=== PATIENT | female | born 1945 | race Two or more races ===

== ENCOUNTER 2021-01-07 10:41 | Outpatient (REF) | payer SELFPAY ==
[2021-01-07 13:59] LABS: Hematocrit 36.8 % (37-47); Hemoglobin 11.6 g/dl (12.0-16.0); Mean Corpuscular HGB Conc 31.5 g/dl (31.0-35.0); Mean Corpuscular Hemoglobin 29.4 pg (27.0-33.0); Mean Corpuscular Volume 93.4 fL (80-98); Mean Platelet Volume 10.2 fL (9.4-12.3); Platelet Count 306 X10*3/uL (160-400); Red Blood Count 3.94 X10*6/uL (4.20-5.50); Red Cell Distribution Width 13.2 % (11.0-16.0); White Blood Count 6.9 X10*3/uL (4.8-10.8)
[2021-01-07 14:23] LABS: Alanine Aminotransferase 10 U/L (0-31); Alkaline Phosphatase 72 U/L (39-117); Anion Gap 13 (12-20); Aspartate Amino Transferase 17 U/L (5-31); Bilirubin Direct < 0.2 mg/dL (0.0-0.5); Bilirubin Total 0.3 mg/dL (0.0-1.0); Blood Urea Nitrogen 11 mg/dL (9-16); Calcium 9.3 mg/dL (8.4-10.2); Carbon Dioxide 28 mmol/L (22-29); Chloride 103 mmol/L (96-108); Estimated Glomerular Filt Rate > 60; Glucose Random 84 mg/dL (60-115); Potassium 3.9 mmol/L (3.3-5.1); Sodium 140 mmol/L (135-145); Total Protein 6.9 g/dL (6.5-8.0)
[2021-01-07 14:44] LABS: Thyroid Stimulating Hormone 0.27 uIU/mL (0.32-4.0)
== END 2021-01-07 10:42 | disposition home or self-care (01) ==
LOC: HO.HMGCLDS 10:41
PROVIDERS: Visit Provider Internal Medicine
DX: E03.9 Hypothyroidism, unspecified (principal)
CPT/HCPCS: 36415; 80048; 80076; 84443; 85027

== ENCOUNTER 2021-12-31 10:38 | Outpatient (REF) | payer OTHER, SELFPAY ==
--- NOTE | ~2021-12-31 | XR_ITS ---
EXAMINATION: CHEST AND RIBS, PELVIS AND LEFT FEMUR CLINICAL INFORMATION: Pain left thigh and pleurodynia. COMPARISON: None. TECHNIQUE: Left femur 2 views. Pelvis 1 view. Chest and bilateral ribs 5 views. FINDINGS: LEFT FEMUR: There is no visible fracture or bony abnormality. The bony cortex is intact. The soft tissues are normal. AP PELVIS: There is normal symmetry of bilateral hip joints and SI joints. No bony erosive changes, no fracture or lytic sclerotic process. The SI joints are symmetric and normal. There is solitary phlebolith in pelvis. CHEST AND BILATERAL RIBS: Both lungs are fairly well expanded and clear of acute process. The heart size and pulmonary vascularity is normal. There is mild smooth S-shaped scoliosis of dorsal lumbar spine. Multiple views of bilateral ribs reveal no visible fracture or bony abnormality. No soft tissue abnormality either. XR/XR pelvis min 3V IMPRESSION: Unremarkable left femur. Unremarkable AP pelvis. No rib fractures seen. The chest x-ray is unremarkable.
--- NOTE | ~2021-12-31 | XR_ITS ---
EXAMINATION: CHEST AND RIBS, PELVIS AND LEFT FEMUR CLINICAL INFORMATION: Pain left thigh and pleurodynia. COMPARISON: None. TECHNIQUE: Left femur 2 views. Pelvis 1 view. Chest and bilateral ribs 5 views. FINDINGS: LEFT FEMUR: There is no visible fracture or bony abnormality. The bony cortex is intact. The soft tissues are normal. AP PELVIS: There is normal symmetry of bilateral hip joints and SI joints. No bony erosive changes, no fracture or lytic sclerotic process. The SI joints are symmetric and normal. There is solitary phlebolith in pelvis. CHEST AND BILATERAL RIBS: Both lungs are fairly well expanded and clear of acute process. The heart size and pulmonary vascularity is normal. There is mild smooth S-shaped scoliosis of dorsal lumbar spine. Multiple views of bilateral ribs reveal no visible fracture or bony abnormality. No soft tissue abnormality either. XR/XR ribs BI min 4V w CXR1V IMPRESSION: Unremarkable left femur. Unremarkable AP pelvis. No rib fractures seen. The chest x-ray is unremarkable.
--- NOTE | ~2021-12-31 | XR_ITS ---
EXAMINATION: CHEST AND RIBS, PELVIS AND LEFT FEMUR CLINICAL INFORMATION: Pain left thigh and pleurodynia. COMPARISON: None. TECHNIQUE: Left femur 2 views. Pelvis 1 view. Chest and bilateral ribs 5 views. FINDINGS: LEFT FEMUR: There is no visible fracture or bony abnormality. The bony cortex is intact. The soft tissues are normal. AP PELVIS: There is normal symmetry of bilateral hip joints and SI joints. No bony erosive changes, no fracture or lytic sclerotic process. The SI joints are symmetric and normal. There is solitary phlebolith in pelvis. CHEST AND BILATERAL RIBS: Both lungs are fairly well expanded and clear of acute process. The heart size and pulmonary vascularity is normal. There is mild smooth S-shaped scoliosis of dorsal lumbar spine. Multiple views of bilateral ribs reveal no visible fracture or bony abnormality. No soft tissue abnormality either. XR/XR femur LT 2V IMPRESSION: Unremarkable left femur. Unremarkable AP pelvis. No rib fractures seen. The chest x-ray is unremarkable.
== END 2021-12-31 10:39 | disposition home or self-care (01) ==
LOC: HO.XRAY 10:38
PROVIDERS: PCP Internal Medicine; Visit Provider Internal Medicine
DX: M25.552 Pain in left hip (principal); M79.652 Pain in left thigh; R07.81 Pleurodynia
CPT/HCPCS: 71111; 72190; 73552

== ENCOUNTER 2023-02-24 13:48 | Outpatient (REF) | payer OTHER, SELFPAY ==
[2023-02-24 17:29] LABS: TSH reflex Free T4 0.11 uIU/mL (0.32-4.0)
[2023-02-24 19:48] LABS: Free T4 (Free Thyroxine) 1.07 ng/dL (0.71-1.85)
== END 2023-02-24 13:49 | disposition home or self-care (01) ==
LOC: HO.HHCL 13:48
PROVIDERS: Visit Provider Nurse Practitioner Primary Care
DX: E03.9 Hypothyroidism, unspecified (principal)
CPT/HCPCS: 36415; 84439; 84443

== ENCOUNTER 2023-11-22 08:58 | Outpatient (REF) | payer OTHER, SELFPAY ==
[2023-11-22 11:39] LABS: MANUAL DIFF FLAG NO
[2023-11-22 11:53] LABS: Basophils Percent Auto 0.4 % (0-2); Eosinophils Absolute Auto 0.1 X10*3/uL (0.0-0.4); Eosinophils Percent Auto 1.1 % (0-4); Hematocrit 35.6 % (37.0-47.0); Hemoglobin 11.6 g/dl (12.0-16.0); Imm Gran Abs Auto 0.02 X10*3/uL (0.00-0.03); Imm Gran Pct Auto 0.3 % (0.0-0.4); Lymphocytes Absolute Auto 2.6 X10*3/uL (1.2-4.9); Lymphocytes Percent Auto 36.8 % (20-40); Mean Corpuscular HGB Conc 32.6 g/dl (31.0-35.0); Mean Platelet Volume 10.3 fL (9.4-12.3); Monocytes Absolute Auto 0.6 X10*3/uL (0.1-1.2); Monocytes Percent Auto 7.9 % (2-11); Neutrophils Absolute Auto 3.8 x10*3/uL (2.0-8.3); Neutrophils Percent Auto 53.5 % (45-73); Platelet Count 298 X10*3/uL (160-400); Red Blood Count 3.87 X10*6/uL (4.20-5.50); Red Cell Distribution Width 14.3 % (11.0-16.0); White Blood Count 7.2 X10*3/uL (4.8-10.8)
[2023-11-22 12:06] LABS: Estimated Average Glucose 103 mg/dL; Hemoglobin A1c % 5.2 % (<6.0)
[2023-11-22 12:23] LABS: Alanine Aminotransferase 11 U/L (0-31); Albumin Level 4.2 g/dL (3.5-5.0); Alkaline Phosphatase 69 U/L (39-117); Anion Gap 11 (12-20); Aspartate Amino Transferase 18 U/L (5-31); Bilirubin Direct 0.1 mg/dL (0.0-0.5); Bilirubin Total 0.4 mg/dL (0.0-1.0); Blood Urea Nitrogen 10 mg/dL (9-16); Calcium 9.4 mg/dL (8.4-10.2); Carbon Dioxide 29 mmol/L (22-29); Chloride 105 mmol/L (96-108); Cholesterol 224 mg/dL (<200); Estimated Glomerular Filt Rate > 60; Glucose Random 84 mg/dL (60-115); HDL Cholesterol 61 mg/dL (>40); LDL Cholesterol Calculated 147 mg/dL (<100); Potassium 4.2 mmol/L (3.3-5.1); Sodium 141 mmol/L (135-145); TSH reflex Free T4 1.55 uIU/mL (0.32-4.0); Total Protein 7.2 g/dL (6.5-8.0); Triglycerides 81 mg/dL (<150)
[2023-11-22 12:42] LABS: Folate 13.4 ng/mL (> or = 4.0)
[2023-11-22 12:56] LABS: Vitamin B12 314 pg/mL (200-900)
[2023-11-23 08:55] LABS: ~HepC Num1 0.06 S/CO (0.00-0.79); ~Hepatitis C Antibody Nonreactive (Nonreactive)
[2023-11-23 12:33] LABS: RPR Rapid Plasma Reagin NON-REACTIVE (NON-REACTIVE)
== END 2023-11-22 08:59 | disposition home or self-care (01) ==
LOC: HO.HHCL 08:58
PROVIDERS: Visit Provider Internal Medicine
DX: Z00.00 Encounter for general adult medical examination without abnormal findings (principal); R68.89 Other general symptoms and signs; Z20.2 Contact with and (suspected) exposure to infections with a predominantly sexual mode of transmission
CPT/HCPCS: 36415; 80048; 80061; 80076; 82306; 82607; 82746; 83036; 84443; 85025; 86592; 86803

== ENCOUNTER 2024-02-08 11:05 | Outpatient (REF) | payer OTHER, SELFPAY ==
[2024-02-08 12:57] LABS: TSH reflex Free T4 1.48 uIU/mL (0.32-4.0)
== END 2024-02-08 11:06 | disposition home or self-care (01) ==
LOC: HO.HHCL 11:05
PROVIDERS: Visit Provider Nurse Practitioner Primary Care
DX: E03.9 Hypothyroidism, unspecified (principal)
CPT/HCPCS: 36415; 84443

== ENCOUNTER 2024-07-22 09:40 | Outpatient (REF) | payer MEDICARE, MEDICAID, SELFPAY ==
--- NOTE | ~2024-07-22 | MR_ITS ---
CLINICAL HISTORY: memory loss History of stroke x2. Last occurrence 4 years ago. Head MRI without contrast. Comparison: None Findings: No restricted diffusion/recent infarct. No edema, hemorrhage or mass effect. Ventricles and sulci age-appropriate. Mildly confluent periventricular and patchy juxtacortical white matter signal hyperintensities both hemispheres suggesting [id number]-ij-[id number] chronic small vessel ischemia. No apparent encephalomalacia/gliosis to suggest sizable prior infarct. Patent major arterial flow voids at the skull base. No signal abnormality within the major dural venous sinuses. Ventricles and sulci age-appropriate. Posterior fossa structures intact. No Chiari malformation. Pituitary, parasellar, hypothalamic and pineal regions are unremarkable. Regional marrow signal is normal. Mild mucoperiosteal thickening in the anterior ethmoids. Otherwise included paranasal sinuses and mastoids clear. Bilateral cataract surgery. Otherwise globes, optic nerves, extraocular muscles and retrobulbar fat are unremarkable. Impression: No acute intracranial process. Age-appropriate involutional changes and mild to moderate chronic small vessel ischemic changes. This document has been electronically signed by: Isaiah Vera MD on 07/22/2024 11:17:37
--- OUTSIDE RECORDS SUMMARY | 2024-07-22 09:50 | XMS_ITS | Data Portability ---
Author Organization [place] - [facility], Allergy Address [address] [address] Care Team Providers Care Feedmobile Driver Name Role Phone TETO REDZMANMARGUERITE Primary Care Provider [phone] Assessment No assessment recorded. Plan of Treatment Reminders Order Date Submit Date Provider Last Modified By Organization Details Last Modified Time Details Appointments None record ed. Lab None record ed. Referral None record ed. Procedures None record ed. Surgeries None record ed. Imaging None record ed. Medication Orders None record ed. Patient TargetsNo targets recorded. Patient InstructionsNo instructions recorded. Reason for Referral None Reported. Results Created Date Observation Date Name Description Value Unit Range Abnormal Flag Note LastModifiedBy Organization Detail LastModifiedTime 05/11/20 24 audio gram No observ ation record ed. BARCODE Not Available 2023 15:58:30 Result Notes None recorded. Problems Name Problem SNOMED Code Status Onset Date Resolution Date Notes Provider Name and Address Organization Details Recorded Time Sensorineural hearing loss of bilateral ears [id number] Active 2023 El WHITE [address] [facility],[address], [address], [place] [facility] 14:47:07 Problem Notes None recorded. Procedures Surgical History Date Name Laterality Status Provider Name and Address Organization Details Recorded Time 05/11/2024 [employer] [facility] [employer] ([id number]) completed El WHITE 100 [facility],[place] [address], [place], [address], [place] - [facility] 05/11/2024 14:43:49 05/11/2024 SRT & Tymps ([id number] & [id number]) completed FRANCISCO LARA, AuD 100 [facility] [address], [place], [address], [facility] - [facility] 05/11/2024 14:44:02 Imaging Results Imaging Date Name Status LastModified by Organiz ation Details LastModified Time 05/11/2024 audiogram completed BARCODE Information no t available 05/11/2024 15:58:30 Procedure Notes None recorded. Medical Equipment None Reported. Medications Name Sig Start Date Stop Date Status Note LastModified by Organization Details LastModified Time amoxicillin 500 mg capsule TAKE 1 CAPSULE (500 MG) BY MOUTH EVERY 8 HOURS FOR 7 DAYS active Not Available Not Available No t Available atorvastatin 40 mg tablet active Not Available Not Available Not Available aspirin 81 mg tablet,delay ed release TAKE 1 TABLET (81 MG) BY MOUTH IN THE MORNING active Not Available Not Available Not Available acetaminophe n 500 mg tablet TAKE 1 TABLET BY MOUTH EVERY 6 HOURS NEEDED FOR PAIN active Not Available Not Available No t Available levothyroxin e 75 mcg tablet TAKE 1 TABLET BY MOUTH EVERY DAY EXCEPT TUESDAY active Not Available Not Available No t Available albuterol sulfate HFA 90 mcg/actuatio n aerosol inhaler INHALE 2 PUFFS EVERY 6 HOURS IF NEEDED FOR WHEEZING. active Not Available Not Available No t Available fluticasone propionate 50 mcg/actuatio n nasal spray,suspen maria t PLEASE SEE ATTACHED FOR DETAILED DIRECTIONS active Not Available Not Available N ot Available hydroxyzine pamoate 25 mg capsule TAKE 1 CAPSULE BY MOUTH EVERY DAY AT BEDTIME NEEDED FOR SLEEPING active Not Available Not Available No t Available chlorhexidin e gluconate 0.12 % mouthwash USE 15 ML IN THE MOUTH OR THROAT IF NEEDED IN THE MORNING, AT NOON, AND AT BEDTIME FOR UP TO 5 DAYS. active Not Available Not Available No t Available diclofenac 1 % topical gel APPLY UP TO 4 TIMES A DAY TO AFFECTED JOINT(S) FOR PAIN/SWELLI NG active Not Available Not Available No t Available Vitamin D3 50 mcg (2,000 unit) tablet TAKE 1 TABLET BY MOUTH EVERY DAY active Not Available Not Available No t Available Vitals Date Recorded Body height Body mass index (BMI) Body weight Provider Name and Address Organization Details Last Updated DateTime 05/11/2024 160.02 cm 26 kg/m2 24383.08 g Kaylyn Ball [place] - [facility] 05/11/2024 15:04:31 Social History None recorded. Functional Status None recorded. Mental Status None recorded. Family History Nothing Reported. Medical History No medical history recorded. Gynecological HistoryNo gynecological history recorded. Obstetrics History GPAL:G 0 P 0 0 0 0 Past Encounters Encounter ID Performer Location Encounter Start Date Encounter Closed Date Diagnosis/Indication Diagnosis SNOMED-CT Code Diagnosis ICD10 Code Diagnosis Note [id number] PENELOPE GARZA MD [facility] [address] [place] [address] 05/11/2024 14:26:42 05/11/2024 15:17:47 Sensorineural hearing loss of bilateral ears 089017451 H90.3 Audiologic al evaluation results:Ga ght ear:{{Norm al Normal through 2 kHz Mild* Moderate M oderately- severe Sev ere Profou nd}} {{hearing hearing. s loping to a mild slopi ng to a moderate s loping to moderately severe slo ping to severe slo ping to profound f lat high frequency* low frequency mid frequency cookie bite shay curve}} {{with sen sorineural hearing loss with condu ctive hearing loss with mixed hearing loss with senso rineural hearing loss.#}}Le ft ear:{{Norm al Normal through 2 kHz Mild* Moderate M oderately- severe Sev ere Profou nd}} {{hearing hearing. s loping to a mild slopi ng to a moderate s loping to moderately severe slo ping to severe slo ping to profound f lat high frequency* low frequency mid frequency cookie bite shay curve}} {{with sen sorineural hearing loss with condu ctive hearing loss with mixed hearing loss with senso rineural hearing loss.#}} Tympanomet ry:Right Ear:{{Type A* Type As Type Ad Type C Type C, shallow & rounded Ty pe B Type B with large volume Cou ld not maintain a hermetic seal}}Left Ear:{{Type A* Type As Type Ad Type C Type C, shallow & rounded Ty pe B Type B with large volume Cou ld not maintain a hermetic seal}} She likely had CHL due to CSOM which is now resolved. I gave reassuranc e she only has mild SNHL. Health Concerns Section Related Observation LastModified by Organization Detai ls LastModified Time None Recorded Concern Status LastModified by Organization Details LastModified Time None Recorded Advance Directives Directive None Recorded Payers Encounter Date Sequence Insurance Name Policy Number Policy Sarkar Covered Member ID Sarkar Member ID Guarantor Name 05/11/2024 1 [facility] - DOS ON OR AFTER 2022 - MEDICARE ADVANTAGE [place] (MEDICARE REPLACEMENT/ADV ANTAGE - PPO) Kira Cruz [id number] Kira Cruz Notes Date Note Type Note Provider Name and Address Organization Details Recorded Time 05/11/2024 text/html She reports she had trouble hearing over a month ago. She had a cold at the time. She feels her hearing has improved. She has no current tinnitus but she had it in the past. PENELOPE GARZA MD [address] [place] [address], [address], [facility] - [facility] 05/11/2024 15:21:15 OBGyn Episode No OBEpisode recorded.
--- OUTSIDE RECORDS SUMMARY | 2024-07-22 09:50 | XMS_ITS | Encounter Summary ---
Author Organization [employer] Address [address] [facility] [address] [place] [address] Care Team Providers Care Spot Worker Name Role Phone Jyoti Ross SUSAN Primary Care Provider [phone] Encounter Details Date Type Department Care Team (Late st Contact Info) Description 06/25/2024 Telephone [facility] [address] [place], [place] [phone] Todd Singletonio [address] [place] [address] Social History Tobacco Use Types Packs/Day Years Used Date Smoking Tobacco: Never Smokeless Tobacco: Never Alcohol Use Standard Drinks/Week Comments Not Currently 0 (1 standard drink = 0.6 oz pur e alcohol) Depression Answer Date Recorded Patient Health Questionnaire-9 Score 11 05/10/2024 Patient Health Questionnaire-9 Score 11 05/10/2024 Last PHQ-9: Questionnaire Data Not on file 1 07/10/2023 Housing Stability Answer Date Recorded What is your housing situation today? I have chayo shetty 05/07/[address] you li ve. Do you have problems with any of the following? None of the above 05/07/2023 Food Insecurity Answer Date Recorded Within the past 12 months, y ou worried that your food would run out before you got money to buy more: Never True 05/07/2023 Within the past 12 months,th e food you bought just didn't last and you didn't have enough money to get more: Never True 04/2023 Transportation Answer Date Recorded In the past 12 months, has l ack of transportation kept you from medical appts, meetings, work or from getting things needed for daily living? No 05/07/2023 Utilities Answer Date Recorded In the past 12 months, has t he electric, gas, oil or water company threatened to shut off services in your home? No 05/07/2023 Depression Answer Date Recorded Patient Health Questionnaire-2 Score 1 05/10/2024 Internet Access Answer Date Recorded Internet Access Q1 Yes 05/10/2024 Internet Access Q2 Not on file 05/10/2024 Comments Unknown Sex and Gender Information Value Date Recorded Sex Assigned at Female 04/26/2022 10:38 AM EDT Legal Sex Female 3:17 PM EDT Gender Identity Female 04/26/2022 10:38 AM EDT Sexual Orientation Don't know 04/26/2022 10 :38 AM EDT documented as of this encounter Miscellaneous Notes * Telephone Encounter - Jia Flores - 06/25/2024 9:40 AM EST Spoke with the patient and she is not interested in getting the procedure done because it was to painful the last time she was here. documented in this encounter Plan of Treatment Not on file documented as of this encounter Visit Diagnoses Not on filedocumented in this encounter Additional Health Concerns Assessment Noted Time PHQ-9 Depression Total Score: 11 024 11:36 AM EST documented as of this encounter Care Teams Spot Worker Relationship Specialty Start Date End Date Jyoti Ross ANP [address] [place] [address] PCP - General Family Medicine 05/17/22 documented as of this encounter
--- OUTSIDE RECORDS SUMMARY | 2024-07-22 09:50 | XMS_ITS | Encounter Summary ---
Author Organization [employer] Address [address] [facility] [address] [place] [address] Care Team Providers Care Sourcing Assistant Name Role Phone Jyoti Ross SUSAN Primary Care Provider [phone] Reason for Visit * Reason Onset Date Comments chart prep 06/25/2024 Encounter Details Date Type Department Care Team ([facility] st Contact Info) Description 06/25/2024 Telephone [facility] [address] [place], [place] [phone] Jocelyne Barr [place] chart prep Social History Tobacco Use Types Packs/Day Years [...] t he electric, gas, oil or water [employer] threatened to shut off services in your [...] encounter Miscellaneous Notes * Telephone Encounter - Jocelyne Barr [place] - 06/25/2024 2:53 PM EST Chart Prep Labs: done Images: not applicable Vaccines due: yes Referrals: ent appt pend.. Screenings: none Overdue care gaps: [employer] documented in this encounter Plan of Treatment Not on file documented as of this encounter Visit Diagnoses Not on filedocumented in this encounter Additional Health Concerns Assessment Noted Time PHQ-9 Depression Total Score: 11 024 11:36 AM EST documented as of this encounter Care Teams Sourcing Assistant Relationship Specialty Start Date End Date Jyoti Ross ANP [address] [place] [address] PCP - General Family Medicine 05/17/22 documented as of this encounter
--- OUTSIDE RECORDS SUMMARY | 2024-07-22 09:50 | XMS_ITS | Clinical Summary ---
Author Organization [employer] Address [address] [facility] 7[address] [place] [address] Care Team Providers Care Signs Sales Representative Name Role Phone Jyoti Ross Primary Care Provider Allergies No known active allergies Medications * This document contains information received from the source organization and may not represent a complete record from that organization. Blood Pressure kitIndications:El evated blood pressure reading without diagnosis of hypertension 1 kit in the morning. 1 kit 3 Active Aspirin Low Dose 81 MG EC tabletIndications :Dyslipidemia Take 1 tablet (81 mg) by mouth in the morning. 90 tablet 3 3 Active Diclofenac Sodium (Voltaren) 1 % gelIndications:Bi lateral chronic knee pain,Bilateral hip pain,Chronic bilateral low back pain without sciatica Apply up to 4x/d to affected joint(s) for pain/swelling 100 g 2 4 Active cholecalciferol (Vitamin D-3) 50 MCG (2000 UT) tabletIndications :Low serum vitamin D TAKE 1 TABLET BY MOUTH EVERY DAY 90 tablet 1 4 Active albuterol 108 (90 Base) MCG/ACT inhaler Inhale 2 puffs every 6 (six) hours if needed for wheezing. 18 g 11 4 01/30/20 25 Active acetaminophen (Tylenol) 500 MG tablet Take 1 tablet (500 mg) by mouth every 6 (six) hours if needed for mild pain for up to 20 doses. 20 tablet 4 Active fluticasone (Flonase) 50 MCG/ACT nasal sprayIndications: Nasal congestion SPRAY 1-2 SPRAYS PER NOSTRIL NEEDED ONCE DAILY. SHAKE GENTLY. BEFORE FIRST USE, PRIME PUMP. AFTER USE, CLEAN TIP AND REPLACE CAP. 48 mL 4 Active hydrOXYzine pamoate (Vistaril) 25 MG capsuleIndication s:Difficulty sleeping TAKE 1 CAPSULE BY MOUTH EVERY DAY AT BEDTIME NEEDED FOR SLEEPING 30 capsule 2 4 Active levothyroxine (Synthroid, Levoxyl) 75 MCG tabletIndications :Hypothyroidism, unspecified type TAKE 1 TABLET BY MOUTH EVERY DAY EXCEPT TUESDAY 84 tablet 1 4 Active atorvastatin (Lipitor) 40 MG tabletIndications :Dyslipidemia Take 1 tablet (40 mg) by mouth Once per day. 90 tablet 3 4 Active Active Problems Problem Noted Date Diagnosed Date Moderate episode of recurrent major depressive d isorder 02/22/2024 Assessment & Plan (06/29/2024 8:58 AM EST): During IBH Consult Hisis presenting with depressed mood, Tearful, crying spells , hopelessness, irritable mood, loss of interests/pleasure , sense of isolation/loneliness , isolating, fatigue/loss of energy, inappropriate/excessive guilt , difficulty concentrating, indecisiveness; for a period of 18+ mo, for most or all symptoms in the context of family issues and illness or family illness. Patient reports presenting symptoms of depression with no improvement. Self-awareness of triggers causing sxs and willingness to challenge negative thoughts. Her sense of spirituality is strong. Hisis likes reading, praying and spending time with her family. We explored and discussed coping strategies to use in the daily basis and importance of reaching out to others when needing additional support. clinician engaged patient with active/reflective listening. Reviewed and assessed for risk, current stressors and protective factors using open-ended questions. Pt is currently connected with mental health with an agency in [place] (unknown name); declined medication management as pt would like to continue therapy and used own coping strategies. Assessment & Plan (05/10/2024 12:13 PM EST): During IBH Consult Hisis presenting with depressed mood, hopelessness, irritable mood, loss of interests/pleasure , changes in sleep difficulty falling asleep, psychomotor retardation, fatigue/loss of energy, worthlessness, inappropriate/excessive guilt , difficulty concentrating; for a period of 0-6 mo, for most or all symptoms in the context of illness or family illness. Pt reported feeling depressed lately. Triggers identified as her medical condition and worrying about her children. Her sense of spirituality is strong. Pt is aware of importance of using coping skills. She likes reading, praying and spending time with her family. We explored and discussed coping strategies to use in the daily basis and importance of reaching out to others when needing additional support. clinician engaged patient with active/reflective listening. Reviewed and assessed for risk, current stressors and protective factors using open-ended questions. Pt prefers to be self-referred to [facility]/ [facility] for sooner appt. Intake forms completed after today's appt. Encounter for preventive health examination 10/26 Assessment & Plan (11/18/2023 4:17 PM EDT): See HPI Decreased hearing of both ears 11/18/2023 Forgetfulness 11/18/2023 Dyslipidemia 09/27/2022 Anemia 09/27/2022 Left thigh pain 09/27/2022 Vitreous floaters, right 06/04/2019 Overview (11/01/2022): Last Assessment & Plan: Stable. 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 Tear drops every couple hours. Before bedtime, apply tear ointment. Follow up in 1 week or as needed. 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 Bilateral incipient cataracts 10/02/2018 Overview (11/01/2022): Last Assessment & Plan: Stable. No need for treatment at this time. Return in 3 months for re-evaluation. Bilateral chronic knee pain 03/30/2018 Chronic low back pain 03/30/2018 Acute bilateral low back pain with sciatica 11/2016 Dysphagia 08/30/2016 Hx of hyperlipidemia 04/11/2014 Hypothyroid 01/10/2013 Encounters * This document contains information received from the source organization and may not represent a complete record from that organization. Date Type Department Care Team Description 06/28/2024 11:00 AM EST Office Visit [facility] [address] [place] [address] Jyoti Ross ANP Depression, unspecified depression type (Primary Dx); Memory loss; Moderate cognitive impairment 06/28/2024 Travel 06/25/[address] [address] Jocelyne Barr MA chart prep 06/25/2024 Telephone [facility] [address] [place] [address] Usama Singleton 05/21/2024 11:30 AM EST Clinical Support [address] [address] Yelena Guzman RN Forgetfulness 05/21/2024 Travel 05/16/2024 Travel 05/12/[address] [address] Yolette Guaman, KRISH Appointment Request 05/10/2024 11:00 AM EST Office Visit [address] [address] Jyoti Ross ANP Dyslipidemia (Primary Dx); Memory loss 05/10/2024 Travel 05/08/[address] [address] Jyoti Ross ANP No Show 05/06/[address] [address] Jyoti Ross ANP Hypothyroidism, unspecified type 05/03/[address] [address] Jyoti Ross ANP Difficulty sleeping 04/26/[address] [address] Ingris Amin, KRISH from Last 3 Months Immunizations Name Administration Dates Next Due Influenza High-dose Quadriva lent Preservative Free 04/29/2023 Influenza injectable quadriv alent preservative free 05/20/2021 Influenza, High Dose Seasona l, Preservative Free 04/23/2019,05/06/2016,05/07/2015 Influenza, seasonal, injecta ble, preservative free 04/11/2014 Pneumococcal Conjugate PCV 13 04/11/2014 Pneumococcal Polysaccharide PPSV23 04/04/2012 Tdap 10/11/2012 Zoster, live 05/07/2014 Social History Tobacco Use Types Packs/Day Years Used Date Smoking Tobacco: Never Smokeless Tobacco: Never Tobacco Cessation:Counseling Given: Not Answered Alcohol Use Standard Drinks/Week Comments Not Currently 0 (1 standard drink = 0.6 oz pur e alcohol) Depression Answer Date Recorded Patient Health Questionnaire-9 Score 11 06/28/2024 Patient Health Questionnaire-9 Score 11 06/28/2024 Last PHQ-9: Questionnaire Data Not on file 0 06/28/2024 Housing Stability Answer Date Recorded What is [...] Answer Date Recorded Patient Health Questionnaire-2 Score 3 06/28/2024 Internet Access Answer Date Recorded Internet Access Q1 Yes 05/10/2024 Internet Access Q2 Not on file 05/10/2024 Comments Unknown Sex and Gender Information Value Date Recorded Sex Assigned at Female 04/26/2022 10:38 AM EDT Legal Sex Female 3:17 PM EDT Gender Identity Female 04/26/2022 10:38 AM EDT Sexual Orientation Don't know 04/26/2022 10 :38 AM EDT Last Filed Vital Signs Vital Sign Reading Time Taken Comments Blood Pressure 147/77 06/28/2024 11:08 AM EST Pulse 98 06/28/2024 11:08 AM EST Temperature 36.4 ??C (97.6 ??F) 06/28/2024 11:[address] Respiratory Rate 17 06/28/2024 11:08 AM EST Oxygen Saturation 98% 05/10/2024 12:19 PM EST Inhaled Oxygen Concentration - - Weight 67.8 kg (149 lb 6.4 oz) 06/28/2024 11:08 AM EST Height 149.9 cm (4' 11 ) 06/28/2024 11:08 AM EST Body Mass Index 30.18 06/28/2024 11:08 AM EST Plan of Treatment Health Maintenance Due Date Last Done Comments Dental Oral Exam 1945 Dental Prophylaxis 1945 Dental X-Ray: Bitewings 1946 Alcohol/Substance Use Screening 1958 Zoster Vaccines (2 of 3) 07/02/2014 05/07/2014 RSV Patients and Patients Aged 60 years or older (1 - 1-dose 75+ series) 2021 DTaP/Tdap/Td Vaccines (2 - Td or Tdap) 10/11/2022 10/11/2012 COVID-19 Vaccine ( - season) 2024 Influenza Vaccine (#1) 2024 , 05/20/2021, 04/23/2019, Additional history exists Depression Monitoring (PHQ-9) 12/26/2024 06/28/2024, 06/28/2024 SDOH Screening 05/10/2025 05/10/2024 Depression Screening 06/28/2025 06/28/2024, 06/28/19 Tobacco Screening 06/28/2025 06/28/2024 Dental X-Ray: Full Mouth 01/23/2027 01/23/2024 Pneumococcal Vaccine: 65+ Years Completed 04/11/2014, 04/04/2012 Hepatitis C Screening Completed 11/22/2023 HIB Vaccines Aged Out No longer eligi ble based on patient's age to complete this topic HPV Vaccines Aged Out No longer eligi ble based on patient's age to complete this topic Hepatitis A Vaccines Aged Out No long er eligible based on patient's age to complete this topic Hepatitis B Vaccines Aged Out No long er eligible based on patient's age to complete this topic IPV Vaccines Aged Out No longer eligi ble based on patient's age to complete this topic Meningococcal Vaccine Aged Out No aris chanel eligible based on patient's age to complete this topic RSV under 20 months Aged Out No longe r eligible based on patient's age to complete this topic Rotavirus Vaccines Aged Out No longer eligible based on patient's age to complete this topic Procedures Procedure Name Priority Date/Time Associated Diagnosis Comments PANORAMIC RADIOGRAPHIC IMAGE Routine 01/23/2024 11:30 AM EDT HEPATITIS C AB W/REFL TO HCV RNA, QN, PCR Routine 11/22/2023 9:03 AM EDT Encounter for preventive health examination from Last 3 Months or Most Recently Relevant to Health Maintenance Results * Hepatitis C Antibody with Reflex to HCV, RNA, Quantitative, Real-Time PCR (11/22/2023 9:03 AM EDT) Hepatitis C Antibody Nonreactive Nonreactive [facility] Comment:Antibodies to HCV no t detected; does not exclude early acuteHCV infection. Blood Venous blood specimen / Unknown 11/22/2023 9:03 AM EDT 11/22/2023 11:34 AM EDT Jia Olivo MD LAB BLOOD ORDERABLES Final Result [facility] [address] [place] [address] [phone] from Last 3 Months or Most Recently Relevant to Health Maintenance Insurance [facility] STANDARD MEDICARE DENTAL[place] STAND ADULT [facility] Care Teams Signs Sales Representative Relationship Specialty Start Date End Date Jyoti Ross ANP [address] [place] [id number] PCP - General Family Medicine 05/17/22
--- OUTSIDE RECORDS SUMMARY | 2024-07-22 09:50 | XMS_ITS | Data Portability ---
Author Organization [employer] [facility] [place] [facility] [employer] Address [address] [place] [id number] Care Team Providers Care Truck Farmer Name Role Phone [facility] Referring Provider [facility] Referring Provider [phone] Assessment No assessment recorded. Plan of Treatment [...] instructions recorded. Reason for Referral None Reported. Medical Equipment None Reported. Medications Name Sig Start Date Stop Date Status Note LastModified by Organization Details LastModified Time atorvastatin 40 mg tablet TAKE 1 TABLET BY MOUTH EVERY DAY active Not Available Not Available No t Available aspirin 81 mg tablet,delayed release TAKE 1 TABLET BY MOUTH EVERY DAY active Not Available Not Available No t Available levothyroxine 75 mcg tablet TAKE 1 TABLET BY MOUTH EVERY DAY active Not Available Not Available No t Available cholecalciferol (vitamin D3) 50 mcg (2,000 unit) capsule TAKE 1 CAPSULE BY MOUTH EVERY DAY active Not Available Not Available No t Available Vitals Date Recorded Respiratory rate Oxygen saturation Oxygen saturation in Arterial blood by Pulse oximetry Heart rate Body temperature Systolic blood pressure Diastolic blood pressure Provider Name and Address Organization Details Last Updated DateTime 2 16 /min 98 % 98 % 72 /min 97.3 [degF] 124 mm[Hg] 73 mm[Hg] Not Available [email or web address] - production 2 21:53:16 Social History None recorded. Functional Status None recorded. Mental Status None recorded. Family History Nothing Reported. Medical History No medical history recorded. Gynecological HistoryNo gynecological history recorded. Obstetrics History GPAL:G 0 P 0 0 0 0 Past Encounters Encounter ID Performer Location Encounter Start Date Encounter Closed Date Diagnosis/Indication Diagnosis SNOMED-CT Code Diagnosis ICD10 Code Diagnosis Note [id number] Jessica Joe, MD Main - [facility] [address] [place] [address] 12/18/2021 21:53:13 02/24/2022 10:47:04 Fall W19.XXXA 76 year old female being evaluated after a fall 4 days ago. Patient describes feeling slightly dizzy/blur ry vision right before falling while walking. No episodes since, but has had some pain at buttocks/t high where she landed. This pain is reportedly improving, patient taking tylenol, does not seem to require additional pain relief at this time.Patie nt with negative review of systems, last fall that was similar to this occurred over a decade ago.No further work up indicated as isolated event, like mechanical vs vasovagal, that occurred 4 days ago with minor injuries that are self resolving. Continue tylenol, may add ibuprofen if needed, hot/cold etc. Health Concerns Section Related Observation LastModified by Organization Detai ls LastModified Time None Recorded Concern Status LastModified by Organization Details LastModified Time None Recorded Advance Directives Directive None Recorded Payers Encounter Date Sequence Insurance Name Policy Number Policy Sarkar Covered Member ID Sarkar Member ID Guarantor Name 12/18/[address] [facility] - DOS PRIOR TO 2022 - DUAL ELIGIBLE (MEDICARE REPLACEMENT/ADV ANTAGE - HMO) Kira Cruz [id number] Kira Cruz Notes Date Note Type Note Provider Name and Address Organization Details Recorded Time 12/18/2021 text/html HPI: Patient with history of anemia and CVA. Fell two days ago walking. Remains ambulatory but increased pain and bruising. .................. .................. .................. .................. .................. .................. .................. ............... CRC Nursing Assessment: Comments: CRC RN did not require any additional information to process this visit .................. .................. .................. .................. .................. .................. .................. ............... Fat Pressroom Worker Note: Patient states mechanical fall and blurry vision for about three minutes, but denies any chest palpitations, pain, proceeding dizziness, loss of consciousness, had trauma, dysuria. Eating and drinking normally and ambulating without difficulty, but expressing pain of lower left back and proximal thigh; however improving over the last couple days. On exam: negative Worthington stroke scale. Vital signs unremarkable and alert and oriented times four. No spinal tenderness or crepitus of ribs. Patient encouraged to take up to 1000 mg of Tylenol Q6 hours and 400 mg Motrin Q8HPRN .................. .................. .................. .................. .................. .................. .................. ............... Disposition: Zaira Diaz MD [address] [facility],[address], [place], [address], [employer] 12/18/2021 22:43:56 OBGyn Episode No OBEpisode recorded.
--- OUTSIDE RECORDS SUMMARY | 2024-07-22 09:50 | XMS_ITS | Encounter Summary ---
Author Organization [email or web address] Address [address] [facility] [address] [place] [address] Care Team Providers Care Rib Matcher And Fitter Name Role Phone Jyoti Ross ANP Primary Care Provider [phone] Reason for Visit * Reason Onset Date Comments Referral 12/01/2023 Encounter Details Date Type Department Care Team ([facility] st Contact Info) Description 12/01/2023 Telephone [facility] [address] [place], [place] [phone] Jyoti Ross ANP [address] [place], [place] [phone] Referral Social History Tobacco Use Types Packs/Day Years Used Date Smoking Tobacco: Never Smokeless Tobacco: Never Alcohol Use Standard Drinks/Week Comments Not Currently 0 (1 standard drink = 0.6 oz pur e alcohol) Depression Answer Date Recorded Patient Health Questionnaire-9 Score 0 11/18/2023 Patient Health Questionnaire-9 Score 0 11/18/2023 Last PHQ-9: Questionnaire Data Not on file 0 11/18/2023 Housing Stability Answer Date Recorded What is [...] Answer Date Recorded Patient Health Questionnaire-2 Score 0 11/18/2023 Comments Unknown Sex and Gender Information Value Date Recorded Sex Assigned at Female 04/26/2022 10:38 AM EDT Legal Sex Female 3:17 PM EDT Gender Identity Female 04/26/2022 10:38 AM EDT Sexual Orientation Don't know 04/26/2022 10 :38 AM EDT documented as of this encounter Miscellaneous Notes * Telephone Encounter - Vitaliy Lopez - 12/01/2023 11:47 AM EDT TC from Daughter requesting new referral: Address: [address] [place] [address] [address], [place] [address] Facility Name: [facility] Type of Specialist: [facility] . Daughter stated would like call back to pt to further discuss referral. Please contact pt at [phone]. documented in this encounter Plan of Treatment Not on file documented as of this encounter Visit Diagnoses Not on filedocumented in this encounter Additional Health Concerns Assessment Noted Time PHQ-9 Depression Total Score: 0 11/18/19 3:30 PM EDT documented as of this encounter Care Teams Rib Matcher And Fitter Relationship Specialty Start Date End Date Jyoti Ross ANP [address] [place] [phone] PCP - General Family Medicine 05/17/22 documented as of this encounter
--- OUTSIDE RECORDS SUMMARY | 2024-07-22 09:50 | XMS_ITS | Encounter Summary ---
Author Organization [employer] Address [address] [facility] [address] [place] [address] Care Team Providers Care Assembler Garment Form Name Role Phone Jyoti Ross ANP Primary Care Provider [phone] Reason for Visit * Reason Onset Date Comments Med Refill 11/14/2023 Encounter Details Date Type Department Care Team ([facility] st Contact Info) Description 11/14/[address] [facility] MEDICINE [address] [place], [place] [phone] Jyoti Ross ANP [address] [place], [place] [phone] Med Refill Social History Tobacco Use Types Packs/Day Years [...] encounter Miscellaneous Notes * Telephone Encounter - Brenda Fox LPN - 11/14/2023 12:37 PM EDT Medication pended to PCP. * Telephone Encounter - Berto Fernandez - 11/14/2023 12:27 PM EDT TC from pt requesting medication refill. Medications needing refill : levothyroxine (Synthroid, Levoxyl) 75 MCG tablet To be sent to: [facility] #[id number] [facility]EXT TO [facility] documented in this encounter Plan of Treatment Not on file documented as of this encounter Visit Diagnoses Not on filedocumented in this encounter Additional Health Concerns Assessment Noted Time PHQ-9 Depression Total Score: 15 023 3:31 PM EDT documented as of this encounter Care Teams Assembler Garment Form Relationship Specialty Start Date End Date Jyoti Ross ANP [address] [place] [id number] PCP - General Family Medicine 05/17/22 documented as of this encounter
--- OUTSIDE RECORDS SUMMARY | 2024-07-22 09:50 | XMS_ITS | Encounter Summary ---
Author Organization [employer] Address [address] [facility] [address]t [place] [address] Care Team Providers Care Gas Engine Operator Name Role Phone Jyoti Ross Primary Care Provider [phone] Reason for Referral * Imaging (Routine) - Pending Review Specialty Diagnoses / Procedures Referred By Asuncion guardado Referred To Contact Radiology Diagnoses Memory loss Moderate cognitive impairment Procedures MR Brain w/o Contrast Jyoti Ross ANP [address] [place] [address] Phone: tel: fax: [address] Phone: tel: fax: Referral ID Status Reason Start Date Expiration Date V isits Requested Visits Authorized [id number] Pending Review 06/28/2024 06/28/2025 1 1 Encounter Details Date Type Department Care Team (Late st Contact Info) Description 06/28/2024 11:00 AM EST Office Visit [facility] [address] [place], [place] [phone] Jyoti Ross ANP [address] [place], [place] [phone] Depression, unspecified depression type (Primary Dx); Memory loss; Moderate cognitive impairment Social History Tobacco Use Types Packs/Day Years [...] AM EDT documented as of this encounter Last Filed Vital Signs Vital Sign Reading Time Taken Comments Blood Pressure 147/77 06/28/2024 11:08 AM EST Pulse 98 06/28/2024 11:08 AM EST Temperature 36.4 ??C (97.6 ??F) 06/28/2024 11:[address] Respiratory Rate 17 06/28/2024 11:08 AM EST Oxygen Saturation - - Inhaled Oxygen Concentration - - Weight 67.8 kg (149 lb 6.4 oz) 06/28/2024 11:08 AM EST Height 149.9 cm (4' 11 ) 06/28/2024 11:08 AM EST Body Mass Index 30.18 06/28/2024 11:08 AM EST documented in this encounter Progress Notes * Jyoti Ross, ANP - 06/28/2024 11:00 AM EST Subjective Patient ID: Kira Cruz is a 79 y.o. female who presents for No chief complaint on file.. HPI Here today for follow-up memory/depression. MOCA as below: moderate cognitive impairment Sally Gomez, medical assembly, provided Tajik interpretation. PMH depression, hypothyroid She does not have psychiatry but agrees to see our percussion welding machine operator initially, but after visit declines for now. She has had long standing depression but has never taken med for this. Today she says depression is actually new for her 1 year, but family thinks this has been present for longer 3 years. Pt sees a therapist at a center is [place] when she does see a therapist. Declines IZs today. MOCA w/ RN 05/21/24 Pt reports highest level of education is 2 years of high school. Visulospacial/Executive: scored 4/5. Was able to draw clock, was able to draw cube but unable to complete the number/letter activity. Naming: scored 1/3. Named the latter two incorrectly both as elephant Memory: No points rewarded for this section but after 1 time saying words, pt could repeat 5 words.After second time telling pt words, pt was unable to repeat any 5 words. Attention: Pt scored 3/6 on this section. Was able to repeat digit strings forwards but unable to repeat the sequence backwards. She accurately pointed out when the letter A was said each time. However, was unable to accurately do the 7 7's activity beyond the first subtraction sequence. Language: Scored 2/3. Repeated 1 sentence correctly out of 2. When asked to name as many words as she could beginning with the letter 'P', named 15 words. Abstraction: Scored 1/2 on this portion. She was unable to name the first similarity but stated they both have numbers for the second abstraction pair. Delayed Recall: Scored 0/5 on this section. Was unable to recall any words from earlier in the test. Orientation: Pt scored 2/6 points for being oriented to year and city. Pt stated today is June 17, 2024 and stated she was at [facility]. 1 point to be added for <12 years of formal education. With that point added, pt scored 14 out of a possible 30 points. This score is considered moderate cognitive impairment. Review of Systems Constitutional: Negative for chills and fever. HENT: Negative for sore throat. Respiratory: Negative for cough and shortness of breath. Cardiovascular: Negative for chest pain. Gastrointestinal: Negative for constipation and diarrhea. Endocrine: Negative for polydipsia, polyphagia and polyuria. Genitourinary: Negative for dysuria. Neurological: Negative for dizziness and weakness. Memory loss Psychiatric/Behavioral: Positive for dysphoric mood. Negative for sleep disturbance. The patient isnervous/anxious. Objective BP (!) 147/77 (BP Location: Left arm, Patient Position: Sitting, BP Cuff Size: Adult) Pulse 98 Temp 97.6 ??F (36.4 ??C) (Oral) Resp 17 Ht 4' 11 (1.499 m) Wt 149 lb 6.4 oz (67.8 kg) BMI 30.18 kg/m?? Physical Exam Vitals reviewed. Constitutional: General: She is not in acute distress. Appearance: Normal appearance. She is not ill-appearing. HENT: Head: Normocephalic and atraumatic. Eyes: Extraocular Movements: Extraocular movements intact. Cardiovascular: Rate and Rhythm: Normal rate. Pulmonary: Effort: Pulmonary effort is normal. No accessory muscle usage or respiratory distress. Neurological: Mental Status: She is alert and oriented to person, place, and time. Comments: Walks w cane Psychiatric: Mood and Affect: Mood is depressed. Behavior: Behavior normal. Assessment/Plan Diagnoses and all orders for this visit: Depression, unspecified depression type Referral to psych declined. Also declines psych medications for depression today. Met with Ann Rocha). Memory loss - MR Brain w/o Contrast; Future Moderate cognitive impairment Comments: MOCA 04/2024, TSH wnl 01/2024; RPR, H/H, B12 wnl 10/2023; Will consider neurology pending MRI Orders: - MR Brain w/o Contrast; Future documented in this encounter Plan of Treatment Scheduled Orders Name Type Priority Associated Diagnoses Orde r Schedule MR Brain w/o Contrast Imaging Routine Memory loss Moderate cognitive impairment Expected: 06/28/2024, Expires: 06/28/2025 documented as of this encounter Visit Diagnoses Diagnosis Depression, unspecified depression type- Primary Memory loss Moderate cognitive impairment documented in this encounter Additional Health Concerns Assessment Noted Time PHQ-9 Depression Total Score: 11 025 3:36 PM EST documented as of this encounter Care Teams Gas Engine Operator Relationship Specialty Start Date End Date Jyoti Ross ANP [address] [place] [id number] PCP - General Family Medicine 05/17/22 documented as of this encounter
--- OUTSIDE RECORDS SUMMARY | 2024-07-22 09:50 | XMS_ITS | Encounter Summary ---
Author Organization [employer] Address [address] [facility] [address] 7[address] [place] [address] Care Team Providers Care Craft Artist Name Role Phone Jyoti Ross Primary Care Provider [phone] Encounter Details Date Type Department Care Team (Latest Contact Info) Description 06/28/2024 Travel Social History Tobacco Use Types Packs/Day Years [...] AM EDT documented as of this encounter Plan of Treatment Not on file documented as of this encounter Visit Diagnoses Not on filedocumented in this encounter Additional Health Concerns Assessment Noted Time PHQ-9 Depression Total Score: 11 025 3:36 PM EST documented as of this encounter Care Teams Craft Artist Relationship Specialty Start Date End Date Jyoti Ross ANP [address] [place] [id number] PCP - General Family Medicine 05/17/22 documented as of this encounter
== END 2024-07-22 09:41 | disposition home or self-care (01) ==
LOC: HO.MRI 09:40
PROVIDERS: PCP Internal Medicine; Visit Provider Nurse Practitioner Primary Care
DX: R41.3 Other amnesia (principal); R41.89 Other symptoms and signs involving cognitive functions and awareness
CPT/HCPCS: 70551

== ENCOUNTER → 2024-07-22 09:53 | Outpatient (BNV) | payer MEDICARE, MEDICAID, SELFPAY | PROVIDERS: PCP Internal Medicine; Visit Provider Radiology Diagnostic Radiology | DX: R41.3 Other amnesia (principal) | CPT/HCPCS: 70551 ==

== ENCOUNTER 2025-06-18 08:51 | Outpatient (REF) | payer MEDICARE, MEDICAID, SELFPAY ==
--- OUTSIDE RECORDS SUMMARY | 2025-06-14 10:15 | XMS_ITS | Encounter Summary ---
Author Organization [employer] Address [address] [facility] 7t [place] [address] Care Team Providers Care Assistance Specialist Name Role Phone Jyoti Ross Primary Care Provider [phone] Reason for Referral * Imaging (Routine) - Authorized Specialty Diagnoses / Procedures Referred By Asuncion guardado Referred To Contact Radiology Diagnoses Hypothyroidism, unspecified type Dysphagia, unspecified type Procedures US Thyroid yJoti Ross ANP [address] [place] [address] Phone: tel: fax: [address] [phone] Phone: tel: fax: Referral ID Status Reason Start Date Expiration Date V isits Requested Visits Authorized [id number] Authorized 06/14/2025 06/14/2026 1 1 * Consultation (Routine) - Authorized Specialty Diagnoses / Procedures Referred By Asuncion guardado Referred To Contact Behavioral Health Diagnoses Moderate episode of recurrent major depressive disorder (CMS/HCC) (HCC) Procedures Referral to Behavioral Health Jyoti Ross ANP [address] [place] [address] Phone: tel: fax: Referral ID Status Reason Start Date Expiration Date Visits Requested Visits Authorized [id number] Authorized Specialty Services Required 06/14/2026 1 1 * Imaging (Routine) - Authorized Specialty Diagnoses / Procedures Referred By Asuncion guardado Referred To Contact Radiology Diagnoses Dysphagia, unspecified type Procedures FL Esophagus Barium Swallow Jyoti Ross ANP [address] [place] [address] Phone: tel: fax: [facility] [address] [place] [address] Phone: tel: fax: Referral ID Status Reason Start Date Expiration Date Visits Requested Visits Authorized [id number] Authorized Perform Procedure 5 06/14/2026 1 1 * Consultation (Urgent) - Authorized Specialty Diagnoses / Procedures Referred By Asuncion t Referred To Contact Gastroenterology Diagnoses Dysphagia, unspecified type Jyoti Ross ANP [address] [place] [address] Phone: tel: fax: [facility] Referral ID Status Reason Start Date Expiration Date Visits Requested Visits Authorized [id number] Authorized Specialty Services Required 5 06/14/2026 1 1 Encounter Details Date Type Department Care Team (Late st Contact Info) Description 06/14/2025 10:15 AM EST Office Visit [facility] [address] [place] [phone] Jyoti Ross ANP [address] [place] [phone] Hypothyroidism, unspecified type (Primary Dx); Dysphagia, unspecified type; Dyslipidemia; Vitamin D deficiency; Moderate episode of recurrent major depressive disorder (CMS/HCC) (HCC); Chronic cough; Nasal congestion Social History Tobacco Use Types Packs/Day Years Used Date Smoking Tobacco: Never Smokeless Tobacco: Never Tobacco Cessation:Counseling Given: Not Answered Alcohol Use Standard Drinks/Week Comments Not Currently 0 (1 standard drink = 0.6 oz pur e alcohol) Depression Answer Date Recorded Patient Health Questionnaire-9 Score 8 09/27/2024 Patient Health Questionnaire-9 Score 8 09/27/2024 Last PHQ-9: Questionnaire Data Not on file 0 09/27/2024 Housing Stability Answer Date Recorded What is [...] Date Recorded Patient Health Questionnaire-2 Score 0 09/27/2024 Internet Access Answer Date Recorded Internet Access [...] Sign Reading Time Taken Comments Blood Pressure 110/70 06/14/2025 10:28 AM EST Pulse 74 06/14/2025 10:28 AM EST Temperature 36.2 C (97.1 F) 06/14/2025 10:28 AM EST Respiratory Rate 15 06/14/2025 10:28 AM EST Oxygen Saturation 94% 06/14/2025 10:28 AM EST Inhaled Oxygen Concentration - - Weight 71.7 kg (158 lb) 06/14/2025 10:28 AM EST Height 149.9 cm (4' 11 ) 06/14/2025 10:28 AM EST Body Mass Index 31.91 06/14/2025 10:28 AM EST documented in this encounter Progress Notes * SUSAN Martini - 06/14/2025 10:15 AM EST Subjective Kira is here today for evaluation of sensation of something in throat. Kira Cruz, age 80 years Pmh incl MDD, hypothyroid, anemia, h/o shay's paly, chronic low back pain, HLD Dysphagia - Difficulty swallowing, especially when eating, with sensation of food getting stuck - Needs to drink water to help food go down - Has been blending all food for easier swallowing for an extended period (at least 1 yr) - Avoids bread due to food getting stuck - Symptoms present since at least September 2024 - ENT evaluation reported previously in [place] approximately 4 years ago, noted presence of phlegm Cough - Persistent cough since September 2024 - Reports postnasal drip with snot down the back of the throat Shortness of Breath - Shortness of breath with exertion, such as walking or going up stairs - Noted episode of severe shortness of breath while sitting, reported as really bad yesterday Depression - Reports depression and anxiety - Difficulty accessing Turkish-speaking therapy; previous attempts to find a Turkish-speaking therapist unsuccessful - Attended counseling center in [place], but did not take her insurance - Attended clinic in [place], only one visit, did not feel comfortable with roll forming machine set up operator Thyroid - Thyroid ultrasound performed in 2019, noted to be small - Expressed concern about thyroid shrinking Misc - History of pneumonia earlier in the year, location referenced during lung auscultation (august 2024) Declines Vaccines today Thyroid US in 11/2018 showed Impression IMPRESSION: Small thyroid gland which is nodular in echotexture raising the possibility of Jovanny's thyroiditis. No discrete dominant lesions identified. Reported By: Kunal Menchaca MD Reported And Signed By: Jaelyn Colon MD Narrative EXAMINATION: US THYROID Date: 12/19/2018 CLINICAL DATA: Worsening tachycardia, palpitations. Elevated TPO antibody. COMPARISON: CT soft tissue neck dated 2018. TECHNIQUE: Grayscale and color Doppler imaging were utilized. FINDINGS: The thyroid gland appears heterogeneous and nodular in echotexture. The right lobe of the thyroid measures 4.0 x 1.2 x 0.9 cm. The left lobe of the thyroid measures 4.4 x 1.4 x 1.1 cm. The isthmus measures 0.2 cm in thickness. There is no hyperemia. No discrete thyroid nodules are seen. Jerman ELIZALDE provided Turkish interpretation. Review of Systems Constitutional: Negative for chills, fever and unexpected weight change. HENT: Positive for congestion, postnasal drip and trouble swallowing. Negative for ear pain, facialswelling, nosebleeds, rhinorrhea, sinus pressure, sinus pain, sneezing and sore throat. Eyes: Negative for visual disturbance. Respiratory: Negative for cough and shortness of breath. Cardiovascular: Negative for chest pain. Gastrointestinal: Negative for blood in stool, constipation and diarrhea. Endocrine: Negative for polydipsia, polyphagia and polyuria. Genitourinary: Negative for dysuria. Skin: Negative for rash. Neurological: Negative for dizziness, weakness and headaches. Psychiatric/Behavioral: Positive for dysphoric mood. The patient is nervous/anxious. Objective Blood pressure 110/70, pulse 74, temperature 97.1 ??F (36.2 ??C), temperature source Temporal, resp. rate 15, height 4' 11 (1.499 m), weight 158 lb (71.7 kg), SpO2 94%. Physical Exam Vitals reviewed. Constitutional: Appearance: Normal appearance. Neck: Thyroid: No thyroid mass, thyromegaly or thyroid tenderness. Comments: Mild l sided submandibular cervical adenopathy Cardiovascular: Rate and Rhythm: Normal rate and regular rhythm. Heart sounds: Normal heart sounds. Pulmonary: Effort: Pulmonary effort is normal. Breath sounds: Normal breath sounds. Musculoskeletal: Cervical back: No rigidity or tenderness. Neurological: Mental Status: She is alert and oriented to person, place, and time. Cranial Nerves: Cranial nerves 2-12 are intact. Psychiatric: Mood and Affect: Mood is depressed. Affect is flat. - LUNGS: Breath sounds clear and soft. - Thyroid ultrasound (2019): unusually small thyroid gland Assessment & Plan Hypothyroidism, unspecified type: - Thyroid noted to be unusually small on prior ultrasound (2019), with possible ongoing shrinkage. - Will order thyroid labs and repeat thyroid ultrasound. Dysphagia, unspecified type: - Dysphagia with sensation of food getting stuck, requiring water to swallow. Possible esophageal stenosis considered. I do not believe thyroid is the cause given US result 2019 but will check US as well.. - Ordered modified barium swallow study. Urgent Referral to gastroenterology for endoscopy. Advisedto monitor if certain foods worsen symptoms and to try softer foods. Dyslipidemia: - Will order fasting labs including cholesterol. Chronic cough and possible allergies: - Chronic cough likely related to allergies, with postnasal drip noted. Pneumonia in past. Pt denies fever/chills - Recommended trial of nasal spray for allergies. Ordered chest X-ray to recheck for residual pneumonia. Moderate Depression need for Turkish-speaking mental health provider: - Depression discussed as a possible contributor to decreased activity. Difficulty accessing Turkish-speaking therapist noted. - Will have staff member call to follow up and assist with referral or resources for Turkish-speaking mental health provider. Advised to use [employer] website and contact insurance for provider search. Healthcare proxy and communication preferences: - Need for healthcare proxy and updated communication preferences discussed. - Provided healthcare proxy form and advised to complete for preferred contacts. Appointments - Barium swallow study ordered - Referral to last putter away for endoscopy - Chest X-ray ordered - Fasting laboratory studies (including thyroid labs and lipid panel) - Thyroid ultrasound ordered - Healthcare proxy documentation follow-up call by clinic staff This note was drafted using Ambient (AI) technology. The patient/patient's guardian has been informed and has consented to the use of this technology: Yes documented in this encounter Plan of Treatment Scheduled Orders Name Type Priority Associated Diagnoses Orde r Schedule TSH W/Reflex to FT4 Lab Routine Hypothyroidism, unspecified type Expected: 06/14/2025 (Approximate), Expires: 06/14/2026 Lipid Panel, Standard Lab Routine Dyslipidemia Expected: 06/14/2025 (Approximate), Expires: 06/14/2026 CBC auto differential Lab Routine Hypothyroidism, unspecified type Expected: 06/14/2025 (Approximate), Expires: 06/14/2026 FL Esophagus Barium Swallow Imaging Routine Dysphagia, unspecified type Expected: 06/14/2025, Expires: 06/14/2026 Comprehensive Metabolic Panel Lab Routine Dyslipidemia Expected: 06/14/2025 (Approximate), Expires: 06/14/2026 Vitamin D, 25-Hydroxy, Total, Immunoassay Lab Routine Vitamin D deficiency Expected: 06/14/2025 (Approximate), Expires: 06/14/2026 XR Chest 2 Views Imaging Routine Chronic cough Expected: 06/14/2025, Expires: 06/14/2026 US Thyroid Imaging Routine Hypothyroidism, unspecified type Dysphagia, unspecified type Expected: 06/14/2025, Expires: 06/14/2026 Scheduled Referrals Name Type Priority Associated Diagnoses Order Schedule Referral to Gastroenterology Outpatient Referral Urgent Dysphagia, unspecified type Expected: 06/14/2025 (Approximate), Expires: 06/14/2026 documented as of this encounter Visit Diagnoses Diagnosis Hypothyroidism, unspecified type- Primary Dysphagia, unspecified type Dyslipidemia Other and unspecified hyperlipidemia Vitamin D deficiency Moderate episode of recurrent major depressive disorder (CMS/HCC) (HCC) Chronic cough Cough Nasal congestion Other diseases of nasal cavity and sinuses documented in this encounter Additional Health Concerns Assessment Noted Time PHQ-9 Depression Total Score: 8 09/28/19 25 9:32 AM EDT documented as of this encounter Care Teams Assistance Specialist Relationship Specialty Start Date End Date Jyoti Ross ANP [address] [place] [address] PCP - General Family Medicine 05/17/22 documented as of this encounter
--- NOTE | ~2025-06-18 | XR_ITS ---
EXAMINATION: XR CHEST 2 VIEWS HISTORY: cough, h/o PNA COMPARISON: Comparison is made with the prior examination dated 12/31/2021. FINDINGS: PA and lateral views of the chest are submitted. The lungs are expanded and clear. There is no pleural effusion, pneumothorax, or pulmonary vascular congestion. The heart is normal in size. There is degenerative disc disease of the spine. XR/XR chest 2V IMPRESSION: No acute cardiopulmonary abnormality. Electronically signed by: Galo Carpio MD 06/18/2025 09:23 AM [id number]
--- OUTSIDE RECORDS SUMMARY | 2025-06-18 09:13 | XMS_ITS | Clinical Summary ---
Author Organization [facility] Address [address] [place] [address] Phone Care Team Providers Care Acidizer Water Well Name Role Phone Jyoti Ross NP Primary Care Provider [phone] Allergies No known active allergies Medications levothyroxine (SYNTHROID,LEVO THROID) 25 MCG tabletIndicatio ns:dose is unknown. entered for reference only. please review with pt or family Take 1 mcg by mouth every morning. Indications: dose is unknown. entered for reference only. please review with pt or family Active Social History Tobacco Use Types Packs/Day Years Used Date Smoking Tobacco: Never Smokeless Tobacco: Never Tobacco Cessation:Counseling Given: Not Answered Alcohol Use Standard Drinks/Week Comments Not Currently 0 (1 standard drink = 0.6 oz pur e alcohol) Education Answer Date Recorded Are you interested in more education? Not on daija e 10/22/2022 Are you concerned about learning? Not on file 10/22/2022 No 10/22/2022 No 10/22/2022 Digital Access Answer Date Recorded No 11/16/2022 No 11/16/2022 Reliable internet access at home? Not on file 11/16/2022 Device with a working camera? Not on file Intimate Partner Violence Answer Date R ecorded Are you denied basic needs s uch as food, clothing, or medical care? No 08/30/2024 In the past 12 months have y ou been in a relationship with a person who hurts, threatens, or tries to control you? No 08/30/2024 Are you denied basic needs s uch as food, clothing, or medical care? No 08/30/2024 In the past 12 months have y ou been in a relationship with a person who hurts, threatens, or tries to control you? No 08/30/2024 Comments Unknown Sex and Gender Information Value Date Recorded Sex Assigned at Female 12/16/2018 11:20 AM EDT Legal Sex Female 11:03 AM EDT Gender Identity Female 12/16/2018 11:20 AM EDT Sexual Orientation Straight 12/16/2018 11 :20 AM EDT Last Filed Vital Signs Vital Sign Reading Time Taken Comments Blood Pressure 113/78 08/30/2024 10:28 AM EST Pulse 73 08/30/2024 10:28 AM EST Temperature 36.2 C (97.2 F) 08/30/2024 10:28 AM EST Respiratory Rate 18 08/30/2024 10:28 AM EST Oxygen Saturation 97% 08/30/2024 10:28 AM EST Inhaled Oxygen Concentration - - Weight 55.8 kg (123 lb) 02/01/2023 8:04 AM EDT Height 152.4 cm (5') 02/01/2023 8:04 AM EDT Body Mass Index 24.02 02/01/2023 8:04 AM EDT Plan of Treatment Health Maintenance Due Date Last Done Comments DEPRESSION SCREENING 1958 HEPATITIS C SCREENING 1964 ZOSTER VACCINES (1 of 2) 1996 OSTEOPOROSIS SCREENING INITIAL (ONE-TIME) 2011 PNEUMOCOCCAL VACCINES (50+ years) (2 of 2 - PCV) 04/04/2013 04/04/2012 TSH LEVEL 08/02/2020 08/02/2019, 12/07/2018, 01/02/2019, Additional history exists RSV VACCINE (1 - 1-dose 75+ series) 2021 Adult Td,Tdap Booster 10/11/2022 10/11/2012 INFLUENZA VACCINE (#1) 2025 04/29/2023, 2020 COVID-19 VACCINE ( - 2024- season) 2025 LIPID PANEL 11/12/2027 11/11/2022, 09/19/2018 SMOKING STATUS SCREENING (Once After 26 Yrs) Completed 02/01/2023 HEPATITIS A VACCINES Aged Out No long er eligible based on patient's age to complete this topic HIB VACCINES Aged Out No longer eligi ble based on patient's age to complete this topic MENINGOCOCCAL VACCINES (ACWY) Aged Out No longer eligible based on patient's age to complete this topic MENINGOCOCCAL VACCINES (B) Aged Out N o longer eligible based on patient's age to complete this topic Medical Devices Not on file Insurance MEDICARE PART A & B [facility] MEDICARE PART A & B MEDICARE PART A & B MEDICARE PART A & B MEDICARE PART A & B [facility] MEDICARE PART A & B MEDICARE PART A & B Member Subscriber Plan / Payer (Ef fective 2008-Present) Name:Kira Cruz Member ID:[id number] Relation to Subscriber:Self Name:Kira Cruz Subscriber ID:[id number] Payer ID:[id number] Group ID:Not on file Type:Medicare Address: [facility] [employer] [facility] [employer] [facility] [address] [place] [address] [place] MEDICARE PART A & B HEALTH MEDICARE PART A & B [facility] Care Teams Acidizer Water Well Relationship Specialty Start Date End Date Jyoti Ross NP [address] [place] [address] PCP - General Nurse Practitioner 10/05/22 Additional Source Comments The information contained in this document represents components of the legal health record. It is not the complete legal health record.[facility]
--- OUTSIDE RECORDS SUMMARY | 2025-06-18 09:13 | XMS_ITS | Encounter Summary ---
Author Organization [employer] Address [address] [place] [address] Care Team Providers Care Water Manager Name Role Phone Jyoti Ross ANP Primary Care Provider Reason for Visit * Reason Onset Date Comments Lab Orders 06/11/2025 Encounter Details Date Type Department Care Team ([facility] st Contact Info) Description 06/11/2025 Telephone [facility] MEDICINE [address] [place], [place] [phone] Jyoti Ross ANP [address] [place], [place] [phone] Lab Orders Social History Tobacco Use Types Packs/Day Years [...] encounter Miscellaneous Notes * Telephone Encounter - Eileen Guo RN - 06/13/2025 11:17 AM EST Return call placed to the pt daughter Dolly (not on HIPAA but has permission to speak on the pt behalf) in regard to the request for the pt to have thyroid labs done. Dolly explained that when the pt has thyroid levels that are elevated or off she typically experiences difficulty swallowing. The pt is experiencing difficulty with swallowing but is able to swallow own saliva and take down foodnormally. No SOB noted. Dolly advised that PCP has not seen the pt in over six months and that assick onsite is advised for further evaluation. Dolly was agreeable and scheduled with PCP on 06/14 for further evaluation. Dolly given ED precautions and reasons to call back . * Telephone Encounter - Eileen Guo RN - 06/13/2025 10:39 AM EST Return all placed to the pt daughter Dolly and a VM was left to call back the office * Telephone Encounter - Natalie Kramer - 06/12/2025 11:59 AM EST Tc from pt returning call Contact pt at [phone] * Telephone Encounter - Yolette Guaman RN - 06/11/2025 4:42 PM EST Telephone call returned to daughter Dolly regarding below message. No answer, left v/m. * Telephone Encounter - Alice Viramontes - 06/11/2025 2:42 PM EST Tc from pt daughter requesting for pt to be tested for her thyroid Contact pt daughter [phone] documented in this encounter Plan of Treatment Not on file documented as of this encounter Visit Diagnoses Not on filedocumented in this encounter Additional Health Concerns Assessment Noted Time PHQ-9 Depression Total Score: 8 09/28/19 25 9:32 AM EDT documented as of this encounter Care Teams Water Manager Relationship Specialty Start Date End Date Jyoti Ross ANP [address] [place] [address] PCP - General Family Medicine 05/17/22 documented as of this encounter
--- OUTSIDE RECORDS SUMMARY | 2025-06-18 09:13 | XMS_ITS | Clinical Summary ---
Author Organization [employer] [facility] Address [address] [place] [address] Care Team Providers Care Rubber Tester Name Role Phone Jyoti Ross Primary Care Provider [phone] Allergies No known active allergies Medications * This document contains information received from the source organization and may not represent a complete record from that organization. Blood Pressure kitIndications: Elevated blood pressure reading without diagnosis of hypertension 1 kit in the morning. 1 kit 11/09/19 23 Active Diclofenac Sodium (Voltaren) 1 % gelIndications: Bilateral chronic knee pain,Bilateral hip pain,Chronic bilateral low back pain without sciatica Apply up to 4x/d to affected joint(s) for pain/swellin g 100 g 2 07/01/19 24 Active acetaminophen (Tylenol) 500 MG tablet Take 1 tablet (500 mg) by mouth every 6 (six) hours if needed for mild pain for up to 20 doses. 20 tablet 02/06/20 24 Active atorvastatin (Lipitor) 40 MG tabletIndicatio ns:Dyslipidemia Take 1 tablet (40 mg) by mouth Once per day. 90 tablet 3 05/10/20 24 Active aspirin (Aspirin Low Dose) 81 MG EC tabletIndicatio ns:Dyslipidemia TAKE 1 TABLET BY MOUTH EVERY MORNING 90 tablet 3 08/06/19 25 Active Spacer/Aero-Hol ding Chambers deviceIndicatio ns:Pneumonia of right lung due to infectious organism, unspecified part of lung 1 each if needed (with albuterol). Use w/ albuterol. 1 each 09/28/19 25 Active amoxicillin-cla vulanate (Augmentin) 875-125 MG tabletIndicatio ns:Pneumonia of right lung due to infectious organism, unspecified part of lung 1 tablet BID with food 14 tablet 09/28/19 25 Active cholecalciferol (Vitamin D-3) 50 MCG (2000 UT) tabletIndicatio ns:Low serum vitamin D TAKE 1 TABLET BY MOUTH EVERY DAY 90 tablet 1 10/18/19 25 Active chlorhexidine (Peridex) 0.12 % solution USE 15 ML IN THE MOUTH OR THROAT IF NEEDED IN THE MORNING, AT NOON, AND AT BEDTIME FOR UP TO 5 DAYS. 473 mL 10/17/19 25 Active albuterol 108 (90 Base) MCG/ACT inhalerIndicati ons:Pneumonia of right lung due to infectious organism, unspecified part of lung INHALE 2 PUFFS BY MOUTH EVERY 6 HOURS IF NEEDED FOR WHEEZING OR SHORTNESS OF BREATH. 18 g 1 12/18/19 25 Active levothyroxine (Synthroid, Levoxyl) 75 MCG tabletIndicatio ns:Hypothyroidi sm, unspecified type TAKE 1 TABLET BY MOUTH EVERY DAY EXCEPT TUESDAY 84 tablet 1 05/16/20 25 Active hydrOXYzine pamoate (Vistaril) 25 MG capsuleIndicati ons:Difficulty sleeping TAKE 1 CAPSULE BY MOUTH EVERY DAY AT BEDTIME NEEDED FOR SLEEPING 90 capsule 05/28/20 25 Active fluticasone (Flonase) 50 MCG/ACT nasal sprayIndication s:Nasal congestion SPRAY 1-2 SPRAYS PER NOSTRIL NEEDED ONCE DAILY. SHAKE GENTLY. BEFORE FIRST USE, PRIME PUMP. AFTER USE, CLEAN TIP AND REPLACE CAP. 48 mL 06/14/20 25 Active fluticasone (Flonase) 50 MCG/ACT nasal sprayIndication s:Nasal congestion SPRAY 1-2 SPRAYS PER NOSTRIL NEEDED ONCE DAILY. SHAKE GENTLY. BEFORE FIRST USE, PRIME PUMP. AFTER USE, CLEAN TIP AND REPLACE CAP. 48 mL 02/28/20 24 025 Discontinued(Re order (will not trigger notification to Pharmacy)) amoxicillin (Amoxil) 500 MG capsule TAKE 1 CAPSULE (500 MG) BY MOUTH EVERY 8 HOURS FOR 7 DAYS 025 Discontinued( erapy completed) hydrOXYzine pamoate (Vistaril) 25 MG capsuleIndicati ons:Difficulty sleeping TAKE 1 CAPSULE BY MOUTH EVERY DAY AT BEDTIME NEEDED FOR SLEEPING 90 capsule 02/27/20 25 025 Discontinued Active Problems Problem Noted Date Diagnosed Date Stye 11/30/2024 Assessment & Plan (11/30/2024 9:14 AM EDT): Erythromycin ointment BID x 5-7 days Wash hands thoroughly before and after application Warm compresses 2-3 times daily Lubricant eye drops as needed Sensorineural hearing loss (SNHL) of both ears 1 07/11/2023 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 Hisis reported her depression has improved. She is feeling better and has come to term of accepting her clinical depression as part of her life. She is connected with therapy services and has PRN medication prescribed by her PCP. Pt is aware of importance of recognizing triggers and reaching out to other for additional support. Assessment & Plan (06/29/2024 8:58 AM EST): [...] thoughts. Her sense of spirituality is strong. Kira likes reading, praying and spending time with her family. We explored and discussed coping strategies to use in the daily basis and importance of reaching out to others when needing additional support. clinician engaged patient with active/reflective listening. Reviewed and assessed for risk, current stressors and protective factors using open-ended questions. Pt is currently connected with mental health with an agency in [place] (unknown name); declined medication management as pt [...] questions. Pt prefers to be self-referred to [facility]/ [facility] for sooner appt. Intake forms completed [...] Hx of hyperlipidemia 04/11/2014 Hypothyroid 01/10/2013 Encounters Date Type Department Care Team Description 06/14/2025 10:15 AM EST Office Visit [facility] MEDICINE [address] [place] [address] Jyoti Ross ANP Hypothyroidism, unspecified type (Primary Dx); Dysphagia, unspecified type; Dyslipidemia; Vitamin D deficiency; Moderate episode of recurrent major depressive disorder (CMS/HCC) (HCC); Chronic cough; Nasal congestion 06/14/2025 Travel 06/13/2025 Telephone [facility] MEDICINE [address] [place] [address] Jyoti Ross ANP chart prep 06/11/2025 Telephone [facility] MEDICINE [address] [place] [address] Jyoti Ross ANP Lab Orders 05/27/2025 Refill [facility] MEDICINE [address] [place] [address] Jyoti Ross ANP Difficulty sleeping 05/16/2025 Refill [facility] MEDICINE [address] [place] [address] Jyoti Ross ANP Hypothyroidism, unspecified type 03/19/2025 Telephone [facility] OPTOMETRY [address] [place] [address] Cielo French, OD from Last 3 Months Immunizations Immunization Administration Dates Next Due Influenza High-dose Quadriva [...] your housing situation today? I have chayo diogenes 05/07/[address] you li [...] Mass Index 31.91 06/14/2025 10:28 AM EST Plan of Treatment Health Maintenance Due Date Last Done Comments Dental Oral Exam 1945 Dental Prophylaxis 1945 Dental X-Ray: Bitewings 1945 Zoster Vaccines (2 of 3) 07/02/2014 05/07/2014 RSV Patients and Patients Aged 60 years or older (1 - 1-dose 75+ series) 2021 DTaP/Tdap/Td Vaccines (2 - Td or Tdap) 10/11/2022 10/11/2012 COVID-19 Vaccine ( - season) 2025 Influenza Vaccine (#1) 2025 , 05/20/2021, 04/23/2019, Additional history exists SDOH Screening 09/18/2025 09/18/2024 Alcohol/Substance Use Screening 09/27/2025 09/27/2024 Depression Screening 09/27/2025 09/27/2024, 09/28/19 Tobacco Screening 06/14/2026 06/14/2025 Dental X-Ray: Full Mouth 01/23/2027 01/23/2024 Pneumococcal Vaccine: 50+ Years Completed 04/11/2014, 04/04/2012 Hepatitis C Screening [...] patient's age to complete this topic Meningococcal B Vaccine Aged Out No l onger eligible based on patient's age to complete [...] AM EDT) Hepatitis C Antibody Nonreactive Nonreactive [facility] Comment:Antibodies to HCV no t detected; does not exclude early acuteHCV infection. Blood Venous blood specimen / Unknown 11/22/2023 9:03 AM EDT 11/22/2023 11:34 AM EDT us Jia Olivo MD LAB BLOOD ORDERABLES Final Result [facility] [address] [place] [address] [phone] from Last 3 Months or Most Recently Relevant to Health Maintenance Insurance [facility] STANDARD [place] [id number] DENTAL-[facility] MEDICAID [facility] ADULT DENTAL [facility] Care Teams Rubber Tester Relationship Specialty Start Date End Date Jyoti Ross ANP [address] [place] [address] PCP - General Family Medicine 05/17/22
--- OUTSIDE RECORDS SUMMARY | 2025-06-18 09:13 | XMS_ITS | Encounter Summary ---
Author Organization [employer] Address [address] [place] [address] Care Team Providers Care Portainer Operator Name Role Phone Jyoti Ross ANP Primary Care Provider [phone] Reason for Visit * Reason Onset Date Comments Referral 12/01/2023 Encounter Details Date Type Department Care Team ([facility] st Contact Info) Description 12/01/[address] [facility] MEDICINE [address] [place], [place] [phone] Jyoti Ross ANP [address] [place] [address] Referral Social History Tobacco Use Types Packs/Day [...] TC from Daughter requesting new referral: Address: [address] [place] [address] [address], [place] [address] Facility Name: [facility] Type of Specialist: [facility] . Daughter stated would like call back to pt to further discuss referral. Please contact pt at [phone]. documented in this encounter Plan of Treatment Not on file documented as of this encounter Visit Diagnoses Not on filedocumented in this encounter Additional Health Concerns Assessment Noted Time PHQ-9 Depression Total Score: 0 11/18/19 3:30 PM EDT documented as of this encounter Care Teams Portainer Operator Relationship Specialty Start Date End Date Jyoti Ross ANP [address] [place] [address] PCP - General Family Medicine 05/17/22 documented as of this encounter
--- OUTSIDE RECORDS SUMMARY | 2025-06-18 09:13 | XMS_ITS | Encounter Summary ---
Author Organization [employer] Address [address] 7t [place] [address] Care Team Providers Care Malted Milk Supervisor Name Role Phone Jyoti Ross ANP Primary Care Provider [phone] Reason for Visit * Reason Onset Date Comments Referral 01/06/2023 Encounter Details Date Type Department Care Team (Late st Contact Info) Description 01/06/2023 Telephone [facility] MEDICINE [address] [place], [place] [phone] Jyoti Ross ANP [address] [place] [address] Referral Social History Tobacco Use Types Packs/Day Years Used Date Smoking Tobacco: Never Smokeless Tobacco: Never Alcohol Use Standard Drinks/Week Comments Not Currently 0 (1 standard drink = 0.6 oz pur e alcohol) Depression Answer Date Recorded Patient Health Questionnaire-9 Score 15 11/08/2022 Depression Answer Date Recorded Patient Health Questionnaire-2 Score 4 11/08/2022 Comments Unknown Sex and Gender Information Value Date Recorded Sex Assigned at Female 04/26/2022 10:38 AM EDT Legal Sex Female 3:17 PM EDT Gender Identity Female 04/26/2022 10:38 AM EDT Sexual Orientation Don't know 04/26/2022 10 :38 AM EDT documented as of this encounter Miscellaneous Notes * Telephone Encounter - Verito Dill - 01/06/2023 3:42 PM EDT Tc from pt daughter requesting a renewal for physical therapy. Last referral was made on 09/27 documented in this encounter Plan of Treatment Not on file documented as of this encounter Visit Diagnoses Not on filedocumented in this encounter Additional Health Concerns Assessment Noted Time PHQ-9 Depression Total Score: 15 023 3:31 PM EDT documented as of this encounter Care Teams Malted Milk Supervisor Relationship Specialty Start Date End Date Jyoti Ross ANP [address] [place] [address] PCP - General Family Medicine 05/17/22 documented as of this encounter
--- OUTSIDE RECORDS SUMMARY | 2025-06-18 09:13 | XMS_ITS | Encounter Summary ---
Author Organization [employer] Address [address] [place] [address] Care Team Providers Care Jewelry Casting Model Maker Apprentice Name Role Phone Jyoti Ross ANP Primary Care Provider [phone] Reason for Visit * Reason Onset Date Comments chart prep 06/13/2025 Encounter Details Date Type Department Care Team ([facility] st Contact Info) Description 06/13/2025 Telephone [facility] MEDICINE [address] [place], [place] [phone] Jyoti Ross ANP [address] [place] [address] chart prep Social History Tobacco Use Types [...] encounter Miscellaneous Notes * Telephone Encounter - Amaris Dill MA - 06/13/2025 1:51 PM EST ..Chart Prep Labs: not applicable Images: not applicable Vaccines due: Covid Due, Tdap Due, and Flu Due Referrals: Not Applicable Screenings: Not Applicable Overdue care gaps: None documented in this encounter Plan of Treatment Not on file documented as of this encounter Visit Diagnoses Not on filedocumented in this encounter Additional Health Concerns Assessment Noted Time PHQ-9 Depression Total Score: 8 09/28/19 25 9:32 AM EDT documented as of this encounter Care Teams Jewelry Casting Model Maker Apprentice Relationship Specialty Start Date End Date Jyoti Ross ANP [address] [place] [address] PCP - General Family Medicine 05/17/22 documented as of this encounter
--- OUTSIDE RECORDS SUMMARY | 2025-06-18 09:13 | XMS_ITS | Encounter Summary ---
Author Organization [employer] Address [address] [place] [address] Care Team Providers Care Actuarial Science Teacher Name Role Phone Jyoti Ross Primary Care Provider [phone] Reason for Visit * Reason Onset Date Comments Med Refill 11/14/2023 Encounter Details Date Type Department Care Team ([facility] st Contact Info) Description 11/14/2023 Telephone [facility] MEDICINE [address] [place], [place] [phone] Jyoti Ross ANP [address] [place], [place] [phone] Med Refill Social History Tobacco Use Types [...] 75 MCG tablet To be sent to: [id number] [facility] documented in this encounter Plan of Treatment Not on file documented as of this encounter Visit Diagnoses Not on filedocumented in this encounter Additional Health Concerns Assessment Noted Time PHQ-9 Depression Total Score: 15 023 3:31 PM EDT documented as of this encounter Care Teams Actuarial Science Teacher Relationship Specialty Start Date End Date Jyoti Ross ANP [address] [place] [address] PCP - General Family Medicine 05/17/22 documented as of this encounter
--- OUTSIDE RECORDS SUMMARY | 2025-06-18 09:13 | XMS_ITS | Encounter Summary ---
Author Organization [employer] Address [address] [place] [address] Care Team Providers Care Compliance Officer Name Role Phone Jyoti Ross SUSAN Primary Care Provider [phone] Reason for Visit * Reason Comments Med Refill Encounter Details Date Type Department Care Team ([facility] st Contact Info) Description 10/16/2024 Refill [facility] ADULT DENTAL [address] [place], [place] [phone] Kody Yan DMD [address] [place], [place] [phone] Social History Tobacco Use Types Packs/Day Years [...] encounter Miscellaneous Notes * Telephone Encounter - Marley Rosales DDS - 10/16/2024 11:45 AM EDT Approving, but needs appt for additional refills. documented in this encounter Plan of Treatment Not on file documented as of this encounter Visit Diagnoses Not on filedocumented in this encounter Additional Health Concerns Assessment Noted Time PHQ-9 Depression Total Score: 8 09/28/19 25 9:32 AM EDT documented as of this encounter Care Teams Compliance Officer Relationship Specialty Start Date End Date Jyoti Ross ANP [address] [place] [address] PCP - General Family Medicine 05/17/22 documented as of this encounter
--- OUTSIDE RECORDS SUMMARY | 2025-06-18 09:13 | XMS_ITS | Encounter Summary ---
Author Organization [employer] Address [address] [place] [address] Care Team Providers Care Harness Puller Name Role Phone Jyoti Ross Primary Care Provider [phone] Encounter Details Date Type Department Care Team (Latest Contact Info) Description 06/14/2025 Travel Social History Tobacco Use Types Packs/Day [...] documented as of this encounter Care Teams Harness Puller Relationship Specialty Start Date End Date Jyoti Ross ANP [address] [place] [address] PCP - General Family Medicine 05/17/22 documented as of this encounter
--- OUTSIDE RECORDS SUMMARY | 2025-06-18 09:13 | XMS_ITS | Encounter Summary ---
Author Organization [facility] Address [address] [facility] [facility] [address] [place] [id number] Phone Care Team Providers Care Nurses Director Name Role Phone Unknown, Unknown Primary Care Provider Jyoti Maldonado NP Primary Care Provider [phone] Reason for Referral * Physical Therapy (Routine) - Closed Specialty Diagnoses / Procedures Referred By Asuncion guardado Referred To Contact Physical Therapy Diagnoses Encounter for rehabilitation Jyoti Ross NP Phone: tel: fax: [facility] [address] [place] [address] Phone: tel: Referral ID Status Reason Start Date Expiration Date Visits Re quested Visits Authorized [id number] Closed 09/29/2022 12/30/2022 17 17 Encounter Details Date Type Department Care Team (Latest Contact Info) Description 09/29/2022 Transcribe Orders [facility] [address] [place] [address] Jyoti Ross NP [address] [place] [address] Encounter for rehabilitation (Primary Dx); Left thigh pain Social History Tobacco Use Types Packs/Day Years Used Date Smoking Tobacco: Unknown Smokeless Tobacco: Never Alcohol Use Standard Drinks/Week Comments Not Currently 0 (1 standard drink = 0.6 oz pur e alcohol) Comments Unknown Sex and Gender Information Value Date Recorded Sex Assigned at Female 12/16/2018 11:20 AM EDT Legal Sex Female 11:03 AM EDT Gender Identity Female 12/16/2018 11:20 AM EDT Sexual Orientation Straight 12/16/2018 11 :20 AM EDT documented as of this encounter Plan of Treatment Not on file documented as of this encounter Procedures Procedure Name Priority Date/Time Associated Diagnosis Comments AMB REFERRAL TO [facility] PHYSICAL THERAPY Routine 11/02/2022 11:54 AM EDT Encounter for rehabilitation documented in this encounter Results * Ambulatory referral to [facility] Physical Therapy (11/02/2022 11:54 AM EDT) Other Jyoti Ross [employer] AMB [facility] REFERRALS Final Result documented in this encounter Visit Diagnoses Diagnosis Encounter for rehabilitation- Primary Left thigh pain Pain in soft tissues of limb documented in this encounter Additional Health Concerns Infection Onset Date Last Indicated Resolved Time CoV-Risk 08/30/2024 08/30/2024 09/10/2024 1:21 AM EDT documented as of this encounter Care Teams Nurses Director Relationship Specialty Start Date End Date Unknown, Unknown, PCP - General 12/16/18 10/04/22 Jyoti Ross NP [address] [place] [id number] PCP - General Nurse Practitioner 10/05/22 documented as of this encounter Additional Source Comments The information contained in this document represents components of the legal health record. It is not the complete legal health record.[facility]
[2025-06-18 11:31] LABS: MANUAL DIFF FLAG NO
[2025-06-18 11:39] LABS: Hematocrit 37.2 % (37.0-47.0); Hemoglobin 11.8 g/dl (12.0-16.0); Imm Gran Abs Auto 0.02 X10*3/uL (0.00-0.03); Imm Gran Pct Auto 0.3 % (0.0-0.4); Lymphocytes Absolute Auto 3.0 X10*3/uL (1.2-4.9); Mean Corpuscular HGB Conc 31.7 g/dl (31.0-35.0); Mean Corpuscular Hemoglobin 29.4 pg (27.0-33.0); Mean Corpuscular Volume 92.8 fL (80.0-98.0); NRBC Abs Auto 0.000 X10*3/uL (0.0-0.012); NRBC Pct Auto 0.0 /100WBC (0.0-0.2); Platelet Count 290 X10*3/uL (160-400); Red Blood Count 4.01 X10*6/uL (4.20-5.50); White Blood Count 6.0 X10*3/uL (4.8-10.8)
[2025-06-18 11:54] LABS: Alanine Aminotransferase 17 U/L (0-31); Albumin Level 4.2 g/dL (3.5-5.0); Alkaline Phosphatase 61 U/L (39-117); Anion Gap 8 (12-20); Aspartate Amino Transferase 24 U/L (5-31); Blood Urea Nitrogen 12 mg/dL (9-16); Calcium 9.1 mg/dL (8.4-10.2); Carbon Dioxide 30 mmol/L (22-29); Chloride 107 mmol/L (96-108); Cholesterol 223 mg/dL (<200); Estimated Glomerular Filt Rate > 60; HDL Cholesterol 53 mg/dL (>40); Potassium 4.2 mmol/L (3.3-5.1); Sodium 141 mmol/L (135-145); Total Protein 6.7 g/dL (6.5-8.0); Triglycerides 108 mg/dL (<150)
== END 2025-06-18 08:52 | disposition home or self-care (01) ==
LOC: HO.HHCX 08:51
PROVIDERS: PCP Nurse Practitioner Primary Care; Visit Provider Nurse Practitioner Primary Care
DX: R05.3 Chronic cough (principal); E03.9 Hypothyroidism, unspecified; E78.5 Hyperlipidemia, unspecified; E55.9 Vitamin D deficiency, unspecified
CPT/HCPCS: 36415; 71046; 80053; 80061; 82306; 84443; 85025

== ENCOUNTER → 2025-06-18 08:55 | Outpatient (BNV) | payer MEDICARE, MEDICAID, SELFPAY | PROVIDERS: PCP Nurse Practitioner Primary Care; Visit Provider Radiology Diagnostic Radiology | DX: R05.9 Cough, unspecified (principal) | CPT/HCPCS: 71046 ==